=== PATIENT | male | born 1955 | race Caucasian/White ===

== ENCOUNTER 2025-03-30 13:52 | Inpatient (IN) | payer OTHER ==
[~2025-03-30] VITALS: Ht 180.3 cm; Wt 104.1 kg
[2025-03-30 13:58] VITALS: O2SAT 100
[2025-03-30 14:33] LABS: BASOPHILS % 0.2 % (0.0-2.0); EOSINOPHILS % 0.1 % (0.0-5.0); HEMATOCRIT. 39.0 % (42.0-52.0); HEMOGLOBIN. 12.4 g/dL (14.0-18.0); LYMPHOCYTES % 10.0 % (20.0-50.0); MEAN PLATELET VOLUME 8.6 fl (7.4-10.4); MONOCYTES % 2.7 % (2.0-8.0); NEUTROPHILS % 87.0 % (40.0-76.0); PLATELET 413 x1000/uL (130-400); RED BLOOD CELL COUNT 4.68 mill/uL (4.7-6.1); RED CELL DISTRIBUTION WIDTH 16.2 % (11.6-14.6)
[2025-03-30 14:54] LABS: UREA NITROGEN BLOOD 30 mg/dL (9-23)
[2025-03-30 14:55] LABS: CREATININE 2.6 mg/dL (0.6-1.3)
[2025-03-30 14:57] LABS: ASPARTATE AMINOTRANSFERASE 19 IU/L (<34); BILIRUBIN DIRECT 0.2 mg/dL (<=3.0); BILIRUBIN TOTAL 0.5 mg/dL (0.1-1.0)
[2025-03-30 14:58] LABS: PROTEIN TOTAL 8.4 g/dL (6.0-8.3)
[2025-03-30 15:12] LABS: BG DEOXYHEMOGLOBIN 50.4 % (0.0-5.0)
[2025-03-30 15:24] LABS: TROPONIN I HIGH SENSITIVITY 91 ng/L (3.0-53)
[2025-03-30] MEDS ORDERED: CEFTRIAXONE 1,000 MG in DEXT 5% WATER 100 ML IV SCH (15:30)
[2025-03-30] MEDS: SODIUM CHLORIDE 0.9% 1,000 ML IV ONE ×2 (15:35→15:36)
[2025-03-30] MEDS: PANTOPRAZOLE SODIUM 40 MG/VIAL IV ONE (15:40)
[2025-03-30] MEDS ORDERED: CEFTRIAXONE 1GM/50ML 50 ML IV SCH (15:45)
[2025-03-30] MEDS: INSULIN REGULAR (HUMULIN R) 1000UNITS/10ML VIAL IV ONE (16:35)
[2025-03-30] MEDS: INSULIN REGULAR (HUMULIN R) 1000UNITS/10ML VIAL SUBCUT ONE (16:35)
[2025-03-30 17:59] LABS: CREATININE 2.3 mg/dL (0.6-1.3); UREA NITROGEN BLOOD 22.0 mg/dL (9-23)
[2025-03-30 18:00] VITALS: BP 140/93; PULSE 102; RESP 16; TEMP 35.6; O2SAT 98
[2025-03-30] MEDS ORDERED: ACETAMINOPHEN 325MG TABLET PO PRN (18:15)
[2025-03-30] MEDS ORDERED: ONDANSETRON HCL 4MG/2ML INJ IV PRN (18:15)
[2025-03-30] MEDS ORDERED: DEXTROSE 50% WATER 50ML SYRINGE IV PRN (18:15)
[2025-03-30 18:19] VITALS: BP 140/93; PULSE 102; RESP 16; TEMP 35.584
[2025-03-30] MEDS ORDERED: METF-1150 PO (18:35)
[2025-03-30] MEDS ORDERED: GLIP10TA17 PO (18:35)
[2025-03-30] MEDS: AMLODIPINE 10MG TABLET PO SCH (18:43)
[2025-03-30] MEDS: SODIUM CHLORIDE 0.9% 1,000 ML IV SCH (18:43)
[2025-03-30 20:00] VITALS: BP 125/83; PULSE 81; RESP 19; TEMP 36.3; O2SAT 100
[2025-03-30] MEDS: INSULIN LISPRO 100 UNITS/ML SUBCUT SCH (21:00)
[2025-03-30] MEDS: BLOOD SUGAR DIAGNOSTIC STRIP TEST SCH (21:00)
[2025-03-30] MEDS: INSULIN GLARGINE 100 UNITS/ML SUBCUT SCH (22:40)
[2025-03-31] VITALS: BP 154/87; PULSE 81; RESP 19; TEMP 36.4; O2SAT 100
[2025-03-31 04:00] VITALS: BP 128/84; PULSE 82; RESP 18; TEMP 36.6; O2SAT 98
[2025-03-31 06:04] LABS: BASOPHILS % 0.3 % (0.0-2.0); EOSINOPHILS % 1.3 % (0.0-5.0); HEMATOCRIT. 34.6 % (42.0-52.0); HEMOGLOBIN. 11.1 g/dL (14.0-18.0); LYMPHOCYTES % 19.5 % (20.0-50.0); MEAN PLATELET VOLUME 8.5 fl (7.4-10.4); MONOCYTES % 7.8 % (2.0-8.0); NEUTROPHILS % 71.1 % (40.0-76.0); PLATELET 309 x1000/uL (130-400); RED BLOOD CELL COUNT 4.24 mill/uL (4.7-6.1); RED CELL DISTRIBUTION WIDTH 15.7 % (11.6-14.6)
[2025-03-31 06:23] LABS: ASPARTATE AMINOTRANSFERASE 21 IU/L (<34); CREATININE 1.9 mg/dL (0.6-1.3); TRIGLYCERIDE 156 mg/dL (0-150)
[2025-03-31 06:24] LABS: LDL CHOLESTEROL 87 mg/dL (5-100); UREA NITROGEN BLOOD 26 mg/dL (9-23)
[2025-03-31 06:26] LABS: BILIRUBIN TOTAL 0.4 mg/dL (0.1-1.0); PROTEIN TOTAL 7.4 g/dL (6.0-8.3)
[2025-03-31] MEDS: PANTOPRAZOLE 40MG DR TABLET PO SCH (07:03)
[2025-03-31 08:00] VITALS: BP 148/89; PULSE 81; RESP 18; TEMP 36.3; O2SAT 98
[2025-03-31 08:11] LABS: CLARITY URINE CLEAR (CLEAR); COLOR URINE YELLOW (YELLOW); GLUCOSE URINE 1+ (NEGATIVE); KETONES URINE 1+ (NEGATIVE); LEUKOCYTE ESTERASE URINE NEGATIVE (NEGATIVE); NITRITE URINE NEGATIVE (NEGATIVE); OCCULT BLOOD URINE TRACE (NEGATIVE); PH URINE 5.0 (4.5-8.0); PROTEIN URINE 2+ (NEGATIVE); SPECIFIC GRAVITY URINE 1.015 (1.005-1.030); UROBILINOGEN URINE 0.2 E.U./dL (0.2-1.0)
[2025-03-31 08:37] LABS: SQUAMOUS EPITHELIAL CELL URINE 2+ /lpf (RARE/1+)
[2025-03-31 08:38] LABS: BACTERIA URINE TRACE; MUCUS URINE TRACE /lpf (NONE/TRACE); RBC URINE 0-2 /hpf (0-2); WBC URINE 0-2 /hpf (0-2)
[2025-03-31 12:00] VITALS: BP 137/81; PULSE 79; RESP 18; TEMP 36.6; O2SAT 99
[2025-03-31 13:40] LABS: CREATININE 1.9 mg/dL (0.6-1.3)
[2025-03-31 13:41] LABS: UREA NITROGEN BLOOD 27.0 mg/dL (9-23)
[2025-03-31 16:00] VITALS: BP 138/80; PULSE 80; RESP 18; TEMP 36.6; O2SAT 98
[2025-03-31 20:00] VITALS: BP 137/71; PULSE 77; RESP 18; TEMP 36.6; O2SAT 98
[2025-04-01] VITALS: BP 140/70; PULSE 70; RESP 18; TEMP 36.6; O2SAT 95
[2025-04-01 04:00] VITALS: BP 147/81; PULSE 67; RESP 18; TEMP 36.6; O2SAT 96
[2025-04-01 08:00] VITALS: BP 105/59; PULSE 77; RESP 16; TEMP 36.7; O2SAT 95
[2025-04-01 12:00] VITALS: BP 137/77; PULSE 68; RESP 16; TEMP 36.3; O2SAT 99
[2025-04-01 16:00] VITALS: BP 146/74; PULSE 64; RESP 16; TEMP 36.3; O2SAT 96
[2025-04-01 18:06] VITALS: BP 146/74; PULSE 64; RESP 16; TEMP 97.4
== END 2025-04-01 19:05 | disposition home or self-care (01) | DRG 637 ==
LOC: ER 15:03 → 6WST 16:29 → EDBEDREQ 16:30 → ENRESERV 16:54
PROVIDERS: ADMIT Internal Medicine; ATTEND Internal Medicine
DX: E11.10 Type 2 diabetes mellitus with ketoacidosis without coma (principal); N17.0 Acute kidney failure with tubular necrosis; E66.9 Obesity, unspecified; E87.5 Hyperkalemia; Z79.84 Long term (current) use of oral hypoglycemic drugs; Z68.32 Body mass index [BMI] 32.0-32.9, adult
CPT/HCPCS: 36415; 71045; 80048; 80053; 80061; 80076; 81003; 82010; 82375; 82803; 82962; 83036; 83735; 83880; 84484; 85025; 93005; 99291; J1815; J2470; J7030